=== PATIENT | female | born 1975 | race Caucasian/White ===

== ENCOUNTER 2019-12-20 12:32 | Emergency (ER) | payer OTHER ==
[~2019-12-20] VITALS: Ht 157.5 cm; Wt 68.0 kg
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
[2019-12-20] MEDS ORDERED: ONDANSETRON ODT 4 MG TAB.RAPDIS SL ONE (13:30)
[2019-12-20] MEDS ORDERED: MORPHINE SULFATE 4 MG/1 ML DISP.SYRIN IM ONE (13:30)
[2019-12-20] MEDS ORDERED: ONDANSETRON ODT 4 MG TAB.RAPDIS ONE (13:48)
[2019-12-20] MEDS ORDERED: MORPHINE SULFATE 4 MG/1 ML DISP.SYRIN ONE (13:48)
[2019-12-20 14:04] LABS: *URINE HCG, QUAL NEGATIVE (NEGATIVE)
--- NOTE | 2019-12-20 15:30 | NUR ---
PATIENT STATES PAIN HAS DIMINISHED SOME....
--- NOTE | 2019-12-20 16:05 | NUR ---
DC, RX (including precautions) AND F/U INSTRUCTIONS GIVEN AND EXPLAINED TO PATIENT AND mother WHO STATE THEY UNDERSTAND ALL INSTRUCTIONS
[2019-12-20 16:06] VITALS: BP 122/74
== END 2019-12-20 16:07 | disposition home or self-care (01) ==
LOC: ER 12:32
DX: S16.1XXA Strain of muscle, fascia and tendon at neck level, initial encounter (principal); S39.012A Strain of muscle, fascia and tendon of lower back, initial encounter; S09.90XA Unspecified injury of head, initial encounter; V43.52XA Car driver injured in collision with other type car in traffic accident, initial encounter; Y93.89 Activity, other specified; Y92.89 Other specified places as the place of occurrence of the external cause; Y99.8 Other external cause status
CPT/HCPCS: 70450; 71045; 72072; 72100; 72125; 84703; 96372; 99285; J2270; A4663; Q0162